=== PATIENT | female | born 1955 | race Caucasian/White ===

== ENCOUNTER 2018-05-18 13:06 | Emergency (ER) | payer MEDICAID ==
[~2018-05-18] VITALS: Ht 152.4 cm; Wt 77.1 kg
[~2018-05-18 13:06] MED LIST: ACETAMINOPHEN-1 EAC2 PO; ALAVERT10 MG PO; AMOXICILLIN200 M1 PO; ANTIVERT25 MG PO; ASPIR 8181 M1 PO; ASPIR 8181 MG PO; ASPIRIN325 PO; ATENOLOL 100MG100 MG PO; ATENOLOL 50 MG50 M1 PO; ATIVAN0.5 M1 PO; ATIVAN0.5 MG PO; AUGMENTIN 500-1 EACH PO; B12INJ INTRADERM; CALCIUM 500 +1 EAC5 PO; CEFDINIR300 MG PO; CEFUROXIME500 MG PO; CIPRO HC OTIC S10 ML OTIC; CLARITIN10 MG PO; COLACE 100 MG100 MG PO; CORTISPORIN OTI10 M2 OTIC; DIAZEPAM 5 MG5 M1 PO; DICLOFENAC SODI50 MG PO; DOXEPIN 10 MG C10 MG PO; DOXEPIN 25 MG C25 M1 PO; DOXYCYCLINE 10100 MG PO; FENOFIBRATE145 MG PO; FIBER500 MG PO; FIBER625 MG PO; FISH OIL 1,001000 M2 PO; FLAGYL500 MG PO; FLEXERIL PO; FLONASE 0.05%50 MCG NASAL; GLUCOPHAGE500 MG PO; GLUMETZA500 PO; GRALISE300 MG PO; GRALISE600 MG PO; HYDROCHLOROTHIA25 M1 PO; HYDROCHLOROTHIA25 M2 PO; HYDROCODON-ACE1 EAC7 PO; HYDROCODONE-AP1 EACH; K-DUR 20 MEQ T20 MEQ PO; KEFLEX500 M1 PO; LC-445 GM TP; LEVAQUIN 500 M500 M2 PO; LEVAQUIN 750 M750 MG PO; LEVOTHYROXINE25 MCG PO; LEXAPRO 10 MG T10 M1 PO; LEXAPRO20 MG PO; LIDODERM 5%1 PATCH TOP; LOPRESSOR25 PO; LORTAB 5-500 T1 EAC1 PO; MEDROLDOSEPACK PO; METFORMIN HCL500 M2 PO; METHOCARBAMOL750 MG PO; MUCINEX600 MG PO; MULTIVITAMINS PO; NASONEX17 GM NASAL; NORCO 5-325 TA1 EACH PO; NORVASC10 MG PO; ONDANSETRON HCL4 M2 PO; ONDANSETRON ODT8 MG PO; OXYCODONE HCL 55 MG PO; OXYCODONE HCL10 MG; OXYCODONE HCL10 MG PO; PERCOCET 10-321 EACH PO; PERCOCET 5-3251 EACH PO; PERCOCET 7.5-31 EACH PO; PLAVIX 75 MG TA75 M1 PO; POTASSIUM20 PO; PREDNISONE 20 M20 MG PO; PROAIR HFA8.5 GM INH; PROTONIX40 M1 PO; PROVENTIL HFA6.7 G1 INH; ROBAXIN 750 MG750 M1 PO; SENNA-DOCUSATE1 EAC1 PO; TESSALON PERLE100 MG PO; THEREMS-M1 EACH PO; TRICOR; TRICOR145 MG; VALIUM5 MG PO; VENTOLIN HFA 1818 GM INH; VITAMIN D2000 UNIT PO; VITAMIN D3400 UNIT/5 PO; VITAMIN E400 UNI6 PO; VITAMINC500 PO; ZETIA10 MG PO; ZOCOR 20 MG TAB20 M1 PO; ZOFRAN ODT4 MG DISSOLVE; ZOFRAN ODT4 MG PO; ZUPLENZ8 MG PO
[2018-05-18 14:23] LABS: ABSOLUTE BASOPHILS 0.1 thou/uL (0.0-0.2); ABSOLUTE EOSINOPHILS 0.2 thou/uL (0.0-0.7); ABSOLUTE LYMPHOCYTES 2.9 thou/uL (0.8-5.3); ABSOLUTE MONOCYTES 0.5 thou/uL (0.0-1.2); ABSOLUTE NEUTROPHILS 3.5 thou/uL (1.6-8.1); BASOPHILS 1.2 %; EOSINOPHILS 2.2 %; HEMATOCRIT 37.4 % (37.0-47.0); HEMOGLOBIN 12.9 gm/dL (12.0-15.0); LYMPHOCYTES 40.9 %; MCH 31.3 pg (26.0-34.0); MCHC 34.4 g/dL (28.0-37.0); MONOCYTES 7.2 %; MPV 6.6 fl. (7.2-11.1); NUCLEATED RBCS 0 /100WBC; PLATELET COUNT* 480 thou/uL (150-400); POLYS 48.5 %; RBC 4.11 mil/uL (4.20-5.00); RDW-CV 13.5 % (10.5-14.5); WBC 7.1 thou/uL (4.0-11.0)
[2018-05-18] MEDS ORDERED: ATENOLOL 100MG100 MG PO (14:23)
[2018-05-18] MEDS ORDERED: HYDROCHLOROTHIA25 M2 PO (14:23)
[2018-05-18 14:30] LABS: ANION GAP 6 mmol/L (7-16); BUN 15 mg/dL (7-18); CALCIUM 8.8 mg/dL (8.5-10.1); CHLORIDE 98 mmol/L (98-107); CO2 26 mmol/L (21-32); CREATININE 0.9 mg/dL (0.6-1.3); GLUCOSE 92 mg/dL (70-99); POTASSIUM 3.7 mmol/L (3.5-5.1); SODIUM 130 mmol/L (136-145)
[2018-05-18 14:41] LABS: ALBUMIN 3.7 g/dL (3.4-5.0); ALKALINE PHOSPHATASE 55 U/L (46-116); NT-PRO BRAIN NAT PEPTIDE 64 pg/mL (<300); SGOT 18 U/L (15-37); SGPT 26 U/L (30-65); TOTAL BILIRUBIN 0.2 mg/dL (<0.1-1.0); TOTAL PROTEIN 7.5 g/dL (6.4-8.2); TROPONIN-I LEVEL <0.06 ng/mL (<0.06)
[2018-05-18] MEDS ORDERED: AMOXICILLIN875 MG PO (15:52)
[2018-05-18] MEDS ORDERED: ACETAMINOPHEN-1 EAC2 PO (15:52)
[2018-05-18] MEDS ORDERED: PREDNISONE50 MG PO (15:52)
[2018-05-18 16:25] VITALS: BP 116/70
--- NOTE | 2018-05-20 14:08 | EKG ---
[place] [address] ELECTROCARDIOGRAM REPORT Name: HOLGERKIRAN Watson Room: [facility]#: [id number] Admission: 05/18/18 Attend Phys: Discharge: 05/18/18 Date of : 55 Report #: [id number] THIS REPORT FOR: //name// [facility] ED Test Date: 2018-05-18 Test Time: 13:10:25 Pat Name: KIRAN WREN Department: Room: Gender: F First Mate: DEMETRIS : 1955 Requested By: Joy Garcia Order Number: [id number] MD: Jovi Smith Measurements Intervals [place] Rate: 64 P: -18 [place]: 166 QRS: -39 QRSD: 112 T: -47 QT: 423 QTc: 437 Interpretive Statements Sinus rhythm Borderline IVCD with LAD Abnormal R-wave progression, early transition Nonspecific T abnormalities, inferior leads No previous ECG available for comparison Electronically Signed On 05-20-2018 14:08:38 HISTORY TUTOR by Jovi Smith [email or web address] <ELECTRONICALLY SIGNED> By: Jovi Smith MD, [facility] 05/20/18 1408 1310 1310 Jovi Smith MD, FACC /EPI
== END 2018-05-18 16:50 | disposition home or self-care (01) ==
LOC: M.ERS 13:06
PROVIDERS: Personal Emergency Response Attendant
DX: J40 Bronchitis, not specified as acute or chronic (principal); M79.7 Fibromyalgia; I10 Essential (primary) hypertension; E03.9 Hypothyroidism, unspecified; F41.9 Anxiety disorder, unspecified; Z90.710 Acquired absence of both cervix and uterus; Z90.722 Acquired absence of ovaries, bilateral; Z90.49 Acquired absence of other specified parts of digestive tract; Z88.1 Allergy status to other antibiotic agents; Z88.8 Allergy status to other drugs, medicaments and biological substances

== ENCOUNTER → 2018-06-13 | Outpatient (CLI) | payer MEDICAID ==
[~2018-06-13] MED LIST changes: +AMOXICILLIN875 MG PO; +PREDNISONE50 MG PO
[2018-06-13 08:50] LABS: CREATININE 1.2 mg/dL (0.6-1.3)
== END ==
LOC: M.LAB 06-12 09:30 → M.CT 06-12 11:00 → M.LAB 07:46 → M.CT 09:30
PROVIDERS: Internal Medicine Gastroenterology
DX: D3A.090 Benign carcinoid tumor of the bronchus and lung (principal); R91.1 Solitary pulmonary nodule; J98.11 Atelectasis; M47.817 Spondylosis without myelopathy or radiculopathy, lumbosacral region; M96.1 Postlaminectomy syndrome, not elsewhere classified; M43.27 Fusion of spine, lumbosacral region; Z90.49 Acquired absence of other specified parts of digestive tract; Z90.710 Acquired absence of both cervix and uterus

== ENCOUNTER 2018-07-08 13:22 | Inpatient (IN) | payer MEDICAID ==
[~2018-07-08] VITALS: Ht 152.4 cm; Wt 76.7 kg
[2018-07-08 13:24] VITALS: BP 148/86
[2018-07-08 13:41] LABS: ABSOLUTE BASOPHILS 0.1 thou/uL (0.0-0.2); ABSOLUTE EOSINOPHILS 0.1 thou/uL (0.0-0.7); ABSOLUTE LYMPHOCYTES 2.7 thou/uL (0.8-5.3); ABSOLUTE MONOCYTES 0.4 thou/uL (0.0-1.2); ABSOLUTE NEUTROPHILS 3.7 thou/uL (1.6-8.1); BASOPHILS 1.1 %; EOSINOPHILS 1.9 %; HEMATOCRIT 40.5 % (37.0-47.0); HEMOGLOBIN 13.7 gm/dL (12.0-15.0); MCH 30.7 pg (26.0-34.0); MCHC 33.9 g/dL (28.0-37.0); MCV 90.5 fL (80.0-100.0); MONOCYTES 5.3 %; MPV 6.3 fl. (7.2-11.1); NUCLEATED RBCS 0 /100WBC; PLATELET COUNT* 441 thou/uL (150-400); POLYS 52.7 %; RBC 4.47 mil/uL (4.20-5.00); RDW-CV 13.8 % (10.5-14.5)
[2018-07-08] MEDS ORDERED: PLAVIX 75 MG TA75 M1 PO (13:47)
[2018-07-08] MEDS ORDERED: DOXEPIN 50MG CA50 MG PO (13:48)
[2018-07-08] MEDS ORDERED: BENTYL 20 MG TA20 M1 PO (13:48)
[2018-07-08] MEDS ORDERED: TRICOR145 MG PO (13:49)
[2018-07-08] MEDS ORDERED: NEURONTIN600 MG PO (13:51)
[2018-07-08 13:54] LABS: APTT 25.9 Seconds (25.0-31.3); PROTIME 10.2 Seconds (9.20-11.50)
[2018-07-08] MEDS ORDERED: MULTIVITAMINS1 EAC7 PO (13:55)
[2018-07-08] MEDS ORDERED: SENNA8.6 MG PO (13:55)
[2018-07-08] MEDS ORDERED: IMDUR 60 MG TAB60 M1 PO (13:55)
[2018-07-08] MEDS ORDERED: ATORVASTATIN CA40 MG PO (13:56)
[2018-07-08] MEDS ORDERED: TESSALON PERLE100 MG PO (13:56)
[2018-07-08 14:02] LABS: ANION GAP 9 mmol/L (7-16); BUN 14 mg/dL (7-18); CALCIUM 9.2 mg/dL (8.5-10.1); CHLORIDE 101 mmol/L (98-107); CO2 28 mmol/L (21-32); CREATININE 1.2 mg/dL (0.6-1.3); GLUCOSE 161 mg/dL (70-99); POTASSIUM 4.8 mmol/L (3.5-5.1); SODIUM 138 mmol/L (136-145); TROPONIN-I LEVEL <0.06 ng/mL (<0.06)
[2018-07-08 14:07] LABS: ALKALINE PHOSPHATASE 40 U/L (46-116); LIPASE 153 U/L (73-393); MAGNESIUM 1.8 mg/dL (1.8-2.4); NT-PRO BRAIN NAT PEPTIDE 156 pg/mL (<300); SGOT 17 U/L (15-37); SGPT 22 U/L (30-65); TOTAL BILIRUBIN 0.2 mg/dL (<0.1-1.0); TOTAL PROTEIN 7.9 g/dL (6.4-8.2)
[2018-07-08 14:53] LABS: INFLUENZA A ANTIGEN None Detected (None Detect); INFLUENZA B ANTIGEN None Detected (None Detect)
--- NOTE | 2018-07-08 16:52 | EKG ---
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: [place] : 1955 Requested By: Frankie Millan Order Number: [id number] MD: Jaime Nj Measurements Intervals [place] Rate: 79 P: 48 [place]: 172 QRS: -58 QRSD: 106 T: 34 QT: 404 QTc: 464 Interpretive Statements Sinus rhythm Incomplete RBBB and LAFB Baseline wander in lead(s) II,III,aVF Compared to ECG 05/18/2018 13:10:25 Left anterior fascicular block now present Incomplete right bundle-branch block now present Right bundle-branch block now present T-wave abnormality no longer present Electronically Signed On 07-08-2018 16:52:24 CDT by Jaime Nj [email or web address] <ELECTRONICALLY SIGNED> By: Jaime Nj MD, [facility] 07/08/18 1652 1324 1324 Jaime Nj MD, [facility] /EPI
[2018-07-08 18:10] VITALS: BP 116/51
[2018-07-08 18:36] VITALS: BP 115/73
[2018-07-08 19:44] VITALS: BP 109/36
[2018-07-09] VITALS (19 sets, daily range): BP systolic 72–120; BP diastolic 28–63
[2018-07-09 02:06] LABS: GLYCOHEMOGLOBIN (HGB A1C) 6.2 % (4.8-5.6)
[2018-07-09 04:38] LABS: HEMATOCRIT 39.9 % (37.0-47.0); HEMOGLOBIN 13.2 gm/dL (12.0-15.0); MCH 30.4 pg (26.0-34.0); MCHC 33.2 g/dL (28.0-37.0); MCV 91.6 fL (80.0-100.0); MPV 6.7 fl. (7.2-11.1); RBC 4.35 mil/uL (4.20-5.00); RDW-CV 14.1 % (10.5-14.5); WBC 7.8 thou/uL (4.0-11.0)
[2018-07-09 05:11] LABS: ANION GAP 5 mmol/L (7-16); BUN 19 mg/dL (7-18); CALCIUM 9.1 mg/dL (8.5-10.1); CHLORIDE 101 mmol/L (98-107); CHOLESTEROL 207 mg/dL (<200); CO2 31 mmol/L (21-32); CREATININE 1.3 mg/dL (0.6-1.3); GLUCOSE 91 mg/dL (70-99); HDL CHOLESTEROL 49 mg/dL (>40); LDL CHOLESTEROL 126 mg/dL (<100); MAGNESIUM 1.9 mg/dL (1.8-2.4); POTASSIUM 5.1 mmol/L (3.5-5.1); SODIUM 137 mmol/L (136-145); TC:HDL 4.2 Ratio (Not establshd); TRIGLYCERIDE 164 mg/dL (<150); VLDL 33 mg/dL (<40)
[2018-07-09 05:36] LABS: SERUM ASSESSMENT Clear
--- NOTE | 2018-07-09 11:59 | 2DMMODE ---
[place] [address] 2 D/M-MODE ECHOCARDIOGRAM Name: KIRAN WREN Room: [address] IN [facility]#: [id number] Admission: 07/08/18 Attend Phys: Fadi Katz, Discharge: Date of : 55 Date of Service: 07/09/18 1159 Report #: [id number] THIS REPORT FOR: //name// APPROVED REPORT Study performed: 07/09/2018 09:23:27 EXAM: Comprehensive 2D, Doppler, and color-flow Echocardiogram Patient Location: In-Patient Room #: [facility] Status: routine BSA: 1.77 HR: 55 bpm BP: 119/57 mmHg Rhythm: NSR Other Information Study Quality: Good Indications Chest Pain 2D Dimensions IVSd: 9.07 (7-11mm) LVOT Diam: 19.79 (18-24mm) LVDd: 46.30 mm PWd: 8.43 (7-11mm) Ascending Ao: 31.19 (22-36mm) LVDs: 26.26 (25-40mm) Aortic Root: 28.35 mm Volumes Left Atrial Volume (Systole) LA ESV Index: 15.50 mL/m2 Aortic Valve AoV Peak Ace.: 2.97 m/s AO Peak Gr.: 35.36 mmHg LVOT Max P.55 mmHg AO Mean Gr.: 20.24 mmHg LVOT Mean P.96 mmHg LVOT Max V: 1.18 m/s AO V2 VTI: 71.71 cm LVOT Mean V: 0.80 m/s GISSEL (VTI): 1.34 cm2 LVOT V1 VTI: 31.26 cm AI [place]: 2.24 m/s2 AI PHT: 620.85 ms Mitral Valve E/A Ratio: 0.76 [place] [address] 2 D/M-MODE ECHOCARDIOGRAM Name: HOLGERJANE ANGELICA Room: [address] IN ..#: [id number] Admission: 07/08/18 Attend Phys: Fadi Katz, Discharge: Date of : 55 Date of Service: 07/09/18 1159 Report #: [id number] MV Decel. Time: 207.19 ms MV E Max Ace.: 0.77 m/s MV PHT: 60.09 ms MVA (PHT): 3.66 cm2 TDI E/Lateral E': 8.56 E/Medial E': 11.00 Medial E' Ace.: 0.07 m/s Lateral E' Ace.: 0.09 m/s Pulmonary Valve PV Peak Ace.: 0.51 m/s PV Peak Gr.: 1.05 mmHg Tricuspid Valve RAP Estimate: 5.00 mmHg TR Peak Gr.: 27.47 mmHg RVSP: 32.00 mmHg PA Pressure: 32.00 mmHg Left Ventricle The left ventricle is normal size. There is normal LV segmental wall motion. There is normal left ventricular wall thickness. Left ventricular systolic function is normal. LVEF is 60-65%. Grade I - abnormal relaxation pattern. Right Ventricle The right ventricle is normal size. The right ventricular systolic function is normal. Atria The left atrium size is normal. The right atrium size is normal. Aortic Valve Moderate aortic valve sclerosis. Moderate aortic regurgitation. Moderate aortic stenosis. Mitral Valve The mitral valve is normal in structure. There is no mitral valve regurgitation noted. No evidence of mitral valve stenosis. Tricuspid Valve The tricuspid valve is normal in structure. Trace tricuspid regurgitation. Mild pulmonary hypertension. Pulmonic Valve The pulmonary valve is normal in structure. [place] [address] 2 D/M-MODE ECHOCARDIOGRAM Name: KIRAN WREN Room: [address]#: [id number] Admission: 07/08/18 Attend Phys: Fadi Katz, Discharge: Date of : 55 Date of Service: 07/09/18 1159 Report #: [id number] valvular regurgitation. Great Vessels The aortic root is normal in size. IVC is normal in size and collapses >50% with inspiration. Pericardium There is no pericardial effusion. <Conclusion> Normal echocardiogram. The left ventricle is normal size. There is normal left ventricular wall thickness. Left ventricular systolic function is normal. LVEF is 60-65%. Grade I - abnormal relaxation pattern. Moderate aortic valve sclerosis. Moderate aortic regurgitation. Moderate aortic stenosis. Trace tricuspid regurgitation. Mild pulmonary hypertension. IVC is normal in size and collapses >50% with inspiration. <ELECTRONICALLY SIGNED> By: Jaime Nj MD, FACC 07/09/18 1159 1159 1159 Jaime Nj MD, FACC /INF
--- NOTE | 2018-07-09 15:44 | CARD ---
[address] [address] CARDIAC CATH REPORT Name: KIRAN WREN Room: [address] IN .R.#: [id number] Admission: 07/08/18 Attend Phys: Fadi Katz MD Discharge: Date of : 55 Report #: [id number] THIS REPORT FOR: //name// APPROVED REPORT Study performed: 07/09/2018 11:34:13 Patient Details Patient Status: In-Patient Room #: The patient is a 62 year-old female Event Personnel Dena Arenas RN, Fadi Ovalle IRRIGATOR HEAD Monitor, Anibal Blanc (Saqib) Clem Espinal Michael Cnc Mill Programmer Procedures Performed Coronary angiography, left heart catheterization and left ventriculography. Indication Chest pain Risk Factors Coronary Artery Disease Previous Procedures/Diagnoses Previous PCI Procedure Narrative A Slender Glidesheath sheath was inserted into the . Coronary angiography was performed using coronary diagnostic catheters. The right coronary system was accessed and visualized with a DCR: [place] 4.0 5fr catheter. The left coronary system was accessed and visualized with a DCR: [place] 4.0 5fr catheter. The left ventricle was accessed and visualized with a PC: [place] 5fr catheter. The patient tolerated the procedure well and there were no complications associated with the procedure. Intraoperative Conscious Sedation Sedation start time: 1209 Case end Time: 1224 Fentanyl 25 mcg Versed 2 mg Fluoro Time: 2.8 minutes Dose: DAP 59109 cGycm2 [address] [address] CARDIAC CATH REPORT Name: KIRAN WREN Room: [address] ADM IN M.R.#: [id number] Admission: 07/08/18 Attend Phys: Fadi Katz MD Discharge: Date of : 55 Report #: [id number] Contrast Type and Amount: Visipaque 90 ml Coronary Angiography The patient's coronary anatomy is right dominant. Diagnostic Cath Left Main Normal. LAD Widely patent stents in the proximal to midportion of the LAD. The vessel is normal distally. Diagonal 1 50% stenosed proximally. Circumflex Normal. OM1 Normal. OM2 Normal. Right Coronary 20% mid and 10% distal narrowing. R PDA Normal. RPLV Normal. Left Ventriculography The left ventricle is normal in size with normal contractility. The left ventricular ejection fraction is estimated to be >70%. There is no mitral insufficiency. Hemodynamics The aortic pressure is 74/48 mmHg with a mean of 63 mmHg. The left ventricular pressure is 103/18 mmHg with a mean of mmHg. The left ventricular end diastolic pressure is 29 mmHg. Conclusion 1. Widely patent stents in the proximal to mid left anterior descending coronary artery. 2. Minimal nonocclusive disease involving the right coronary artery and first diagonal branch of the left anterior descending coronary artery. 3. Elevated left ventricular end-diastolic pressure. 4. Normal left ventricular systolic function. Findings consistent with acute on chronic diastolic heart failure. Recommendations 1. Aggressive risk factor modification and medical management. 2. Treatment of acute diastolic heart failure. <ELECTRONICALLY SIGNED> By: Jaime Nj MD, [facility] 07/09/18 1543 1543 1543Mictamera Nj MD, FACC /INF
--- NOTE | 2018-07-09 17:27 | CON ---
[address] [address] CONSULTATION Name: KIRAN WREN Room: [address] ADM IN M.R.#: [id number] Admission: 07/08/18 Attend Phys: Fadi Katz MD Discharge: Date of : 55 Report #: [id number] THIS REPORT FOR: //name// CC: Fadi Samson DATE OF SERVICE: 07/08/2018 PRIMARY CARE PHYSICIAN: Dr. Damaris Samson HISTORY OF PRESENT ILLNESS: The patient is a 62-year-old single white female who I was asked to see in the Emergency Room today after she complained of chest pain. The patient has a significant past medical history. Unfortunately, none of her old records are here. She has never been to [facility] before. She notes that last September, she was having chest pain. She apparently had two coronary stents placed at [facility] in her [place]. She states she was sent home, but was readmitted today because of chest pain, had a repeat heart catheterization. She was told at that time she did not require additional stenting because the artery was too small. She has had occasional chest pain since that time. She actually saw a assistant winemaker at [facility] on plans of a second opinion and is scheduled to have an echocardiogram to evaluate a heart murmur. She states recently she has been having intermittent chest pressure. It is not related to exertion or meals. It was in her jaw. It can make her diaphoretic. Last night, she had an episode of chest pressure. She called the ambulance today and was brought to [facility] and admitted for further evaluation and treatment. She has had no palpitation or syncope. PAST MEDICAL HISTORY: Significant for appendectomy, hysterectomy, back surgery, hypertension, glucose intolerance and hyperlipidemia. MEDICATIONS: Consists of Neurontin, aspirin, Synthroid, atenolol, hydrochlorothiazide, Plavix, fenofibrate, Neurontin, Imdur and Lipitor. ALLERGIES: SHE HAS INTOLERANCE TO AMITRIPTYLINE AND ERYTHROMYCIN. FAMILY HISTORY: Positive for heart disease. SOCIAL HISTORY: She is single, had been twice and lives in [place]. No smoking or alcohol abuse. REVIEW OF SYSTEMS: She has had apparently a previous TIA in the past. She has a history of asthma and peptic ulcer disease. No liver disease and no kidney disease. She has had a skin cancer removed in the past. She has seen [place] [address] CONSULTATION Name: KIRAN WREN Room: [address] IN [facility]#: [id number] Admission: 07/08/18 Attend Phys: Fadi Katz MD Discharge: Date of : 55 Report #: [id number] LABORATORY DATA: ECG shows a sinus rhythm, left anterior fascicular block, incomplete right bundle branch block. Workup in the Emergency Room today, she had a chest x-ray that showed normal heart size and clear lung polo. She actually had a CT scan of the abdomen recently that showed a small lung nodule, otherwise unremarkable. This was done last month. Her lab work, sodium 138, creatinine 1.2 and glucose 161. Troponin is 0.06. White blood cell count 7.0 and hemoglobin 13.7. IMPRESSION AND RECOMMENDATIONS: 1. Unstable angina. Recommend repeat cardiac catheterization. 2. History of coronary artery stenting. The patient is on aspirin and Plavix. 3. Hypertension. The patient is on a beta johana and diuretic. 4. Hyperlipidemia. The patient is on fenofibrate for elevated triglycerides and Lipitor for high cholesterol. 5. Glucose intolerance. 6. History of aortic stenosis. <ELECTRONICALLY SIGNED> By: Harpreet Vivar MD, FACC 07/09/18 1727 1609 0429Harpreet Vivar MD, FACC /nt
[2018-07-10 04:00] VITALS: BP 131/54
[2018-07-10 06:15] LABS: CALCIUM 8.3 mg/dL (8.5-10.1); CREATININE 1.2 mg/dL (0.6-1.3); POTASSIUM 4.3 mmol/L (3.5-5.1)
[2018-07-10 08:00] VITALS: BP 114/49
[2018-07-10] MEDS ORDERED: CARAFATE 1 GM TA1 G1 PO (10:07)
[2018-07-10] MEDS ORDERED: NITROGLYCERIN0.4 MG SUBLING (10:11)
[2018-07-10 11:31] VITALS: BP 114/49
[2018-07-10 14:27] VITALS: BP 114/49
== END 2018-07-10 14:20 | disposition home or self-care (01) | DRG 287 ==
LOC: M.ERS 13:22 → M.TBA-ER 15:18 → M.2W 18:24
PROVIDERS: Emergency Medicine Emergency Medical Services; Internal Medicine; ADMIT Internal Medicine
PROC: B2111ZZ Fluoroscopy of Multiple Coronary Arteries using Low Osmolar Contrast (ICD-10-PCS; principal; 2018-07-09)
PROC: B2151ZZ Fluoroscopy of Left Heart using Low Osmolar Contrast (ICD-10-PCS; principal; 2018-07-09)
PROC: 4A023N7 Measurement of Cardiac Sampling and Pressure, Left Heart, Percutaneous Approach (ICD-10-PCS; principal; 2018-07-09)
DX: I25.110 Atherosclerotic heart disease of native coronary artery with unstable angina pectoris (principal); I50.32 Chronic diastolic (congestive) heart failure; I13.0 Hypertensive heart and chronic kidney disease with heart failure and stage 1 through stage 4 chronic kidney disease, or unspecified chronic kidney disease; M79.7 Fibromyalgia; E03.9 Hypothyroidism, unspecified; E78.5 Hyperlipidemia, unspecified; K21.9 Gastro-esophageal reflux disease without esophagitis; J40 Bronchitis, not specified as acute or chronic; F41.1 Generalized anxiety disorder; N18.2 Chronic kidney disease, stage 2 (mild); R73.03 Prediabetes; I35.0 Nonrheumatic aortic (valve) stenosis; E74.39 Other disorders of intestinal carbohydrate absorption; I25.2 Old myocardial infarction; Z95.5 Presence of coronary angioplasty implant and graft; Z86.73 Personal history of transient ischemic attack (TIA), and cerebral infarction without residual deficits; Z90.710 Acquired absence of both cervix and uterus; Z90.722 Acquired absence of ovaries, bilateral; Z90.49 Acquired absence of other specified parts of digestive tract; Z79.02 Long term (current) use of antithrombotics/antiplatelets; Z79.82 Long term (current) use of aspirin; Z79.899 Other long term (current) drug therapy; Z88.1 Allergy status to other antibiotic agents; Z88.8 Allergy status to other drugs, medicaments and biological substances; Z82.49 Family history of ischemic heart disease and other diseases of the circulatory system; Z80.8 Family history of malignant neoplasm of other organs or systems

== ENCOUNTER → 2018-08-21 | Outpatient (CLI) | payer MEDICAID ==
[~2018-08-21] MED LIST changes: +ATORVASTATIN CA40 MG PO; +BENTYL 20 MG TA20 M1 PO; +CARAFATE 1 GM TA1 G1 PO; +DOXEPIN 50MG CA50 MG PO; +IMDUR 60 MG TAB60 M1 PO; +MULTIVITAMINS1 EAC7 PO; +NEURONTIN600 MG PO; +NITROGLYCERIN0.4 MG SUBLING; +SENNA8.6 MG PO; +TRICOR145 MG PO
== END ==
LOC: M.ULTRA 08-12 11:00
DX: R19.06 Epigastric swelling, mass or lump (principal); K21.9 Gastro-esophageal reflux disease without esophagitis; Z90.49 Acquired absence of other specified parts of digestive tract; Z90.710 Acquired absence of both cervix and uterus

== ENCOUNTER 2018-09-05 14:07 | Emergency (ER) | payer MEDICAID ==
[~2018-09-05] VITALS: Ht 152.4 cm; Wt 77.1 kg
[2018-09-05 14:38] LABS: ABSOLUTE BASOPHILS 0.1 thou/uL (0.0-0.2); ABSOLUTE EOSINOPHILS 0.1 thou/uL (0.0-0.7); ABSOLUTE LYMPHOCYTES 3.1 thou/uL (0.8-5.3); ABSOLUTE MONOCYTES 0.5 thou/uL (0.0-1.2); ABSOLUTE NEUTROPHILS 3.4 thou/uL (1.6-8.1); BASOPHILS 0.8 %; EOSINOPHILS 1.8 %; HEMATOCRIT 39.9 % (37.0-47.0); HEMOGLOBIN 13.4 gm/dL (12.0-15.0); LYMPHOCYTES 42.6 %; MCH 30.5 pg (26.0-34.0); MCHC 33.7 g/dL (28.0-37.0); MCV 90.6 fL (80.0-100.0); MONOCYTES 7.3 %; MPV 6.5 fl. (7.2-11.1); NUCLEATED RBCS 0 /100WBC; PLATELET COUNT* 459 thou/uL (150-400); POLYS 47.5 %; RBC 4.41 mil/uL (4.20-5.00); RDW-CV 13.8 % (10.5-14.5); WBC 7.2 thou/uL (4.0-11.0)
[2018-09-05 14:46] LABS: ANION GAP 13 mmol/L (7-16); BUN 24 mg/dL (7-18); CALCIUM 9.4 mg/dL (8.5-10.1); CHLORIDE 99 mmol/L (98-107); CO2 28 mmol/L (21-32); CREATININE 1.1 mg/dL (0.6-1.3); GLUCOSE 97 mg/dL (70-99); POTASSIUM 3.8 mmol/L (3.5-5.1); SODIUM 140 mmol/L (136-145)
[2018-09-05 14:55] LABS: ALBUMIN 4.1 g/dL (3.4-5.0); ALKALINE PHOSPHATASE 36 U/L (46-116); LIPASE 200 U/L (73-393); SGOT 19 U/L (15-37); SGPT 27 U/L (30-65); TOTAL BILIRUBIN 0.3 mg/dL (<0.1-1.0); TOTAL PROTEIN 7.9 g/dL (6.4-8.2); TROPONIN-I LEVEL <0.06 ng/mL (<0.06)
[2018-09-05 15:29] LABS: URINE BILIRUBIN NEGATIVE (Negative); URINE BLOOD NEGATIVE (Negative); URINE CLARITY CLEAR; URINE COLOR YELLOW; URINE GLUCOSE-RANDOM NEGATIVE (Negative); URINE KETONES NEGATIVE (Negative); URINE LEUKOCYTES-REFLEX NEGATIVE (Negative); URINE NITRITE-REFLEX NEGATIVE (Negative); URINE PROTEIN NEGATIVE (Negative); URINE UROBILINOGEN 0.2 E.U./dl (0.2-1.0)
--- NOTE | 2018-09-05 15:39 | EKG ---
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 09/05/18 1539 1428 1428 Harpreet Vivar MD, [facility] /EPI
[2018-09-05] MEDS ORDERED: BENTYL 20 MG TA20 M1 PO (17:20)
[2018-09-05] MEDS ORDERED: MIRALAX17 GM PO (17:20)
[2018-09-05 17:32] VITALS: BP 150/63
== END 2018-09-05 17:33 | disposition home or self-care (01) ==
LOC: M.ERS 14:07
PROVIDERS: Nurse Practitioner Psychiatric/Mental Health
DX: K59.00 Constipation, unspecified (principal); R91.1 Solitary pulmonary nodule; M79.7 Fibromyalgia; I10 Essential (primary) hypertension; E03.9 Hypothyroidism, unspecified; I25.10 Atherosclerotic heart disease of native coronary artery without angina pectoris; F41.9 Anxiety disorder, unspecified; Z90.710 Acquired absence of both cervix and uterus; Z90.49 Acquired absence of other specified parts of digestive tract; Z88.1 Allergy status to other antibiotic agents; Z88.8 Allergy status to other drugs, medicaments and biological substances; Z86.73 Personal history of transient ischemic attack (TIA), and cerebral infarction without residual deficits; Z95.5 Presence of coronary angioplasty implant and graft; Z90.721 Acquired absence of ovaries, unilateral

== ENCOUNTER → 2018-09-18 | Outpatient (CLI) | payer MEDICAID ==
[~2018-09-18] MED LIST changes: +MIRALAX17 GM PO
[2018-09-18 14:20] LABS: ABSOLUTE BASOPHILS 0.1 thou/uL (0.0-0.2); ABSOLUTE EOSINOPHILS 0.2 thou/uL (0.0-0.7); ABSOLUTE LYMPHOCYTES 3.4 thou/uL (0.8-5.3); ABSOLUTE MONOCYTES 0.6 thou/uL (0.0-1.2); ABSOLUTE NEUTROPHILS 3.6 thou/uL (1.6-8.1); EOSINOPHILS 2.1 %; HEMATOCRIT 39.6 % (37.0-47.0); HEMOGLOBIN 13.6 gm/dL (12.0-15.0); LYMPHOCYTES 43.8 %; MCH 31.2 pg (26.0-34.0); MCHC 34.3 g/dL (28.0-37.0); MCV 90.8 fL (80.0-100.0); MONOCYTES 7.8 %; MPV 6.5 fl. (7.2-11.1); NUCLEATED RBCS 0 /100WBC; PLATELET COUNT* 470 thou/uL (150-400); POLYS 45.3 %; RBC 4.37 mil/uL (4.20-5.00); RDW-CV 13.7 % (10.5-14.5); WBC 7.8 thou/uL (4.0-11.0)
[2018-09-18 14:27] LABS: URINE BILIRUBIN NEGATIVE (Negative); URINE BLOOD NEGATIVE (Negative); URINE CLARITY CLEAR; URINE COLOR YELLOW; URINE GLUCOSE-RANDOM NEGATIVE (Negative); URINE KETONES NEGATIVE (Negative); URINE LEUKOCYTES NEGATIVE (Negative); URINE NITRITE NEGATIVE (Negative); URINE PROTEIN NEGATIVE (Negative); URINE SPECIFIC GRAVITY <= 1.005 (1.005-1.030); URINE UROBILINOGEN 0.2 E.U./dl (0.2-1.0)
[2018-09-18 14:36] LABS: ALBUMIN 4.1 g/dL (3.4-5.0); ALKALINE PHOSPHATASE 44 U/L (46-116); ANION GAP 5 mmol/L (7-16); BUN 17 mg/dL (7-18); CALCIUM 10.2 mg/dL (8.5-10.1); CHLORIDE 98 mmol/L (98-107); CHOLESTEROL 211 mg/dL (<200); CO2 32 mmol/L (21-32); CREATININE 1.1 mg/dL (0.6-1.3); GLUCOSE 87 mg/dL (70-99); HDL CHOLESTEROL 45 mg/dL (>40); LDL CHOLESTEROL 130 mg/dL (<100); POTASSIUM 4.1 mmol/L (3.5-5.1); SERUM ASSESSMENT Clear; SGOT 20 U/L (15-37); SGPT 28 U/L (30-65); SODIUM 135 mmol/L (136-145); TC:HDL 4.7 Ratio (Not establshd); TOTAL BILIRUBIN 0.2 mg/dL (<0.1-1.0); TOTAL PROTEIN 8.5 g/dL (6.4-8.2); TRIGLYCERIDE 180 mg/dL (<150); VLDL 36 mg/dL (<40)
== END ==
LOC: M.RAD 13:43
PROVIDERS: Internal Medicine
DX: Z12.31 Encounter for screening mammogram for malignant neoplasm of breast (principal); I10 Essential (primary) hypertension; K57.92 Diverticulitis of intestine, part unspecified, without perforation or abscess without bleeding; E78.5 Hyperlipidemia, unspecified; E66.9 Obesity, unspecified; K21.9 Gastro-esophageal reflux disease without esophagitis; E03.9 Hypothyroidism, unspecified; F32.9 Major depressive disorder, single episode, unspecified; F41.9 Anxiety disorder, unspecified; Z88.1 Allergy status to other antibiotic agents; Z88.8 Allergy status to other drugs, medicaments and biological substances; Z68.39 Body mass index [BMI] 39.0-39.9, adult; Z86.73 Personal history of transient ischemic attack (TIA), and cerebral infarction without residual deficits; Z79.899 Other long term (current) drug therapy; Z90.710 Acquired absence of both cervix and uterus

== ENCOUNTER 2018-11-30 22:40 | Emergency (ER) | payer MEDICAID ==
[~2018-11-30] VITALS: Ht 154.9 cm; Wt 76.7 kg
[2018-12-01] MEDS ORDERED: NORCO 5-325 TA1 EAC1 PO (00:29)
[2018-12-01] MEDS ORDERED: PENICILLIN V P500 MG PO (00:29)
[2018-12-01 01:20] VITALS: BP 101/56
== END 2018-12-01 01:20 | disposition home or self-care (01) ==
LOC: M.ERS 22:40
DX: K05.10 Chronic gingivitis, plaque induced (principal); I10 Essential (primary) hypertension; M79.7 Fibromyalgia; E03.9 Hypothyroidism, unspecified; I25.10 Atherosclerotic heart disease of native coronary artery without angina pectoris; F41.9 Anxiety disorder, unspecified; Z86.73 Personal history of transient ischemic attack (TIA), and cerebral infarction without residual deficits; Z88.8 Allergy status to other drugs, medicaments and biological substances; Z98.890 Other specified postprocedural states; Z90.49 Acquired absence of other specified parts of digestive tract